=== PATIENT | male | born 1975 | race Hispanic/Latino ===

== ENCOUNTER 2017-06-22 21:46 | Emergency (ER) | payer BC ==
[2017-06-22 22:41] VITALS: BP 106/68; PULSE 70; RESP 16; TEMP 98.5; O2SAT 96
[2017-06-22] MEDS ORDERED: Silver Sulfadiazine 1% CREAM (50 gm) TOP STA (23:04)
[2017-06-22] MEDS ORDERED: Tdap Vaccine 0.5 ml Vial (10-64 yrs) IM ONE ×2 (23:04→23:10)
[2017-06-22] MEDS ORDERED: Silver Sulfadiazine 1% CREAM (50 gm) ONE (23:11)
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
== END 2017-06-22 23:55 | disposition home or self-care (01) ==
LOC: H.ER 21:46
DX: T23.101A Burn of first degree of right hand, unspecified site, initial encounter (principal); I48.91 Unspecified atrial fibrillation